=== PATIENT | female | born 1980 | race Caucasian/White ===

== ENCOUNTER 2019-03-30 00:02 | Emergency (ER) | payer OTHER ==
[2019-03-30 01:22] LABS: URINE BLOOD (Dip) POC 3+ (NEGATIVE); URINE GLUCOSE (Dip) POC Negative (NEGATIVE); URINE KETONES (Dip) POC Negative (NEGATIVE); URINE LEUKOCYTE EST (Dip) POC 1+ (NEGATIVE); URINE NITRITE (Dip) POC Negative (NEGATIVE); URINE TOTAL PROTEIN POC 3+ (NEGATIVE)
[2019-03-30] MEDS: NITROFURANTOIN (SR) 100 MG CAP PO (01:26)
[2019-03-30] MEDS: PHENAZOPYRIDINE 100 MG TAB PO (01:26)
== END 2019-03-30 01:53 | disposition home or self-care (01) ==
LOC: FTE 00:02
DX: N39.0 Urinary tract infection, site not specified (principal)
CPT/HCPCS: 81003; 81025; 99283